=== PATIENT | male | born 1935 | race Caucasian/White ===

== ENCOUNTER → 2016-09-13 | Outpatient (CLI) | payer MEDICARE ==
[2016-09-13 14:26] LABS: ANION GAP 15.8 MEQ/L (3-15)
== END ==
LOC: LAB 13:43
PROVIDERS: ATTEND Family Medicine
DX: E11.9 Type 2 diabetes mellitus without complications (principal)
CPT/HCPCS: 36415; 80048; 83036

== ENCOUNTER → 2016-10-10 | Outpatient (CLI) | payer MEDICARE ==
--- NOTE | 2016-10-10 14:36 | Diagnostic Imaging Report ---
EXAMINATION: Right ribs, four views. COMPARISON: None. HISTORY: 81-year-old male, right-sided rib pain. History of fall this past Monday. FINDINGS: There are very mild deformities of the right 9th and 10th ribs without clearly visible fracture line. These may relate to prior rib fractures of uncertain exact age. There is a displaced right fifth rib fracture, which appears acute in age. There is no identified right-sided pneumothorax or pleural effusion. There are multilevel degenerative changes of the thoracic spine. There are mild right glenohumeral and acromioclavicular degenerative changes. IMPRESSION: 1. Acute appearing displaced right fifth rib fracture. 2. Deformities of the right ninth and tenth ribs which are uncertain in exact age. Correlation for focal pain at these sites recommended. 3. No identified right-sided pneumothorax or pleural effusion. Dictated by: Dictated on workstation # [id number]
== END ==
LOC: RAD 13:37
PROVIDERS: ATTEND Family Medicine
DX: S23.41XA Sprain of ribs, initial encounter (principal); S22.31XA Fracture of one rib, right side, initial encounter for closed fracture; W19.XXXA Unspecified fall, initial encounter
CPT/HCPCS: 71100